=== PATIENT | female | born 1980 | race Caucasian/White ===

== ENCOUNTER 2017-04-19 22:03 | Emergency (ER) | payer SELFPAY ==
[~2017-04-19] VITALS: Ht 162.6 cm; Wt 62.5 kg
[~2017-04-19 22:03] MED LIST: FERR324T6 PO; METH0.2V IM; NITR-58 PO; PHEN-537 PO
[2017-04-19 22:05] VITALS: Ht 162.6 cm; Wt 62.5 kg
--- NOTE | 2017-04-20 00:55 | ERD ---
ER Documentation Chief Complaint Date/Time DATE: 04/20/17 TIME: 00:50 Chief Complaint c/o CP x 3 days. Constant. Squeezing like. Non-provoked. Non-radiating. HPI 36-year-old female presents here to emergency department for complaints of mid chest pain that started 3 days ago. Patient described the pain as sharp pain, 6 /10 scale, worst on taking a deep breath. Patient denies any numbness or tingling. Patient denies any dizziness. Patient denies any trauma in the chest. Patient denies any shortness of breath. Patient denies any nausea or vomiting. Patient did not take any medications for pain. ROS All systems reviewed and are negative except as per history of present illness. Medications Home Meds Active Scripts Phenazopyridine Hcl* (Pyridium*) 100 Mg Tab, 100 MG PO TID Y for URINARY PAIN, # 9 TAB Prov:NORBERT CARROLL 06/01/16 Nitrofurantoin Monohyd Macrocr* (Macrobid*) 100 Mg Capsr, 100 MG PO BID for 7 Days, CAP Prov:NORBERT CARROLL 06/01/16 Nitrofurantoin Monohyd Macrocr* (Macrobid*) 100 Mg Capsr, 100 MG PO BID for 7 Days, CAP Prov:KINDRA MCCANN PA-C 03/05/16 Methylergonovine Maleate* (Methergine*) 0.2 Mg/Ml Soln, 0.2 MG IM Q6H Y for BLEEDING, #20 VIAL Prov:BETHEL VOSS MD 09/03/15 Reported Medications Ferrous Sulfate (Ferrous Sulfate) 324 Mg Tabsr, 324 MG PO TID 12/10/12 Allergies Allergies: Coded Allergies: No Known Allergies (Verified Allergy, Unknown, 06/01/16) PMhx/Soc Medical and Surgical Hx: pt denies Medical Hx, pt denies Surgical Hx History of Surgery: No Anesthesia Reaction: No Hx Neurological Disorder: No Hx Respiratory Disorders: No Hx Cardiac Disorders: No Hx Psychiatric Problems: No Hx Miscellaneous Medical Probl: No Hx Alcohol Use: No Hx Substance Use: No Hx Tobacco Use: No Smoking Status: Never smoker FmHx Family History: No coronary disease, No diabetes, No other Physical Exam Vitals Vital Signs Date Time Temp Pulse Resp B/P Pulse Ox O2 Delivery O2 Flow Rate FiO2 04/19/17 22:05 98.4 80 18 118/63 98 Physical Exam GENERAL: The patient is well developed and appropriate for usual state of health, in no apparent distress. CHEST: Clear to auscultation bilaterally. There are no rales, wheezes or rhonchi. Tenderness on palpation in mid chest wall. HEART: Regular rate and rhythm. No murmurs, clicks, rubs or gallops. No S3 or S4. ABDOMEN: Soft, nontender and nondistended. Good bowel sounds. No rebound or guarding. No gross peritonitis. No gross organomegaly or masses. No Hussein sign or McBurney point tenderness. BACK: No midline or flank tenderness. EXTREMITIES: Equal pulses bilaterally. There is no peripheral clubbing, cyanosis or edema. No focal swelling or erythema. Full range of motion. Grossly neurovascularly intact. NEURO: Alert and oriented. Cranial nerves 2-12 intact. Motor strength in all 4 extremities with 5/5 strength. Sensation grossly intact. Normal speech and gait. SKIN: There is no apparent rash or petechia. The skin is warm and dry. HEMATOLOGIC AND LYMPHATIC: There is no evidence of excessive bruising or lymphedema. No gross cervical, axillary, or inguinal lymphadenopathy. Results 24 hrs Laboratory Tests Test 04/20/17 01:25 Troponin I < 0.012ng/ml EKG was done, read by me and is normal sinus rhythm at a rate of 80, normal axis , there is no ST changes or changes in the EKG that indicates any cardiac emergencies at this time. Patient's EKG was also reviewed by Dr. Smith. Impression: no acute findings on EKG PROCEDURE: CHEST - 1 VIEW CLINICAL INDICATION: 36-year-old female with chest pain. TECHNIQUE: A single frontal AP semi-erect portable view of the chest was performed. The images were reviewed on a PACS workstation. COMPARISON: None. FINDINGS: The cardiomediastinal silhouette has a normal appearance. There is no evidence for an infiltrate. There is no evidence for congestive heart failure. There is no evidence for pneumothorax. The osseous structures are intact. IMPRESSION: No evidence for active cardiopulmonary disease. .Michael Santiago MD, MD Date Time Electronically viewed and signed by .Michael Santiago MD, MD on 04/20/2017 02:15 .M/ CC: ROSA ELENA LR NP Procedures/MDM Medical Decision Making: Patient symptoms of chest pain nonspecific at this time , most likely musculoskeletal pain. There is low suspicion for cardiopulmonary emergencies at this time. Patient has low risk factors. EKG is normal, there is no changes in the EKG that indicates cardiac emergencies. Chest X-ray does not show cardiopulmonary emergencies at this time. There is low suspicion for aortic aneurysm, myocardial infarction, pneumothorax, pleural effusion, pulmonary embolism, or any other cardiopulmonary emergencies at this time. Cardiac markers are normal. Prescription was given for ibuprofen for mild to moderate pain, [place] for severe pain, is advised to follow-up with primary care doctor in 2-3 days for reevaluation of symptoms. Patient was advised to return to emergency department for any worsening symptoms. Dispostion: Home. Stable Disclaimer: Inadvertent spelling and grammatical errors are likely due to EHR/ dictation software use and do not reflect on the overall quality of patient care. Also, please note that the electronic time recorded on this note does not necessarily reflect the actual time of the patient encounter. Departure Diagnosis: Primary Impression: Atypical chest pain Condition: Stable Patient Instructions: Chest Pain, Uncertain Cause, Chest Wall Pain, Costochondritis ROSA ELENA LR NP Apr 20, 2017 00:55
--- NOTE | 2017-04-20 02:16 | RADRPT ---
PROCEDURE: CHEST - 1 VIEW CLINICAL INDICATION: 36-year-old female with chest pain. TECHNIQUE: A single frontal AP semi-erect portable view of the chest was performed. The images we re reviewed on a PACS workstation. COMPARISON: None. FINDINGS: The cardiomediastinal silhouette has a normal appearance. There is no evidence for an infiltrate. There is no evidence for congestive heart failure. There is no evidence for pneumothorax. The osseou s structures are intact. IMPRESSION: No evidence for active cardiopulmonary disease. .Michael Santiago MD, MD Date Time Electronically viewed and signed by .Michael Santiago MD, on 04/20/2017 02:15 .M/
[2017-04-20] MEDS ORDERED: HYDR-906 PO (02:38)
[2017-04-20] MEDS ORDERED: IBUP-1542 PO (02:38)
[2017-04-20 02:49] VITALS: BP 106/53; PULSE 62; RESP 18; TEMP 98.9
== END 2017-04-20 02:50 | disposition home or self-care (01) ==
LOC: FTE 22:03
DX: R07.89 Other chest pain (principal)
CPT/HCPCS: 71010; 84484; 93005